=== PATIENT | female | born 1965 | race Caucasian/White ===

== ENCOUNTER 2017-02-22 20:32 | Emergency (ER) | payer MEDICAID ==
[~2017-02-22] VITALS: Ht 154.9 cm; Wt 81.8 kg
[2017-02-22 20:40] VITALS: BP 149/94
--- NOTE | 2017-02-22 21:50 | NUR ---
PT TAKEN TO BED 1
--- NOTE | 2017-02-22 21:55 | NUR ---
PATIENT IS A 51 Y/O FEMALE WHO PRESENTS TO THE ED C/O R ANKLE PAIN. PT STATES, "I FELL DOWN ABOUT THREE DAYS AGO." PT REPORTS 10/10 BURNING PAIN ON THE RIGHT ANKLE THAT DOES NOT RADIATE. PT DENIES CP, SOB, N/V/D. PT AAXO4, RR EVEN/UNLABORED. PT REPOSITIONED FOR COMFORT, BED IN LOWEST POSITION. PARUL HURTADO NOTIFIED. WILL CONTINUE TO MONITOR. Addendum: 02/22/17 at 2226 by [email or web address] PATIENT IS A 51 Y/O FEMALE WHO PRESENTS TO THE ED C/O R ANKLE PAIN. PT STATES, "I FELL DOWN ABOUT THREE DAYS AGO." PT REPORTS 10/10 BURNING PAIN ON THE RIGHT ANKLE THAT DOES NOT RADIATE. CAP REFILL IMMEDIATE, ROM INTACT, AND SENSATION INTACT. NO OBVIOUS SIGNS OF BLEEDING. SWELLING NOTED TO RIGHT ANKLE. PT DENIES CP, SOB, N/V/D. PT AAXO4, RR EVEN/UNLABORED. PT REPOSITIONED FOR COMFORT, BED IN LOWEST POSITION. PARUL HURTADO NOTIFIED. WILL CONTINUE TO MONITOR.
--- NOTE | 2017-02-22 22:06 | NUR ---
Dr. Kearns evaluating patient at bedside.
--- NOTE | 2017-02-22 22:16 | NUR ---
X-Ray at bedside.
[2017-02-22 23:27] VITALS: BP 142/89
--- NOTE | 2017-02-22 23:27 | NUR ---
Patient discharged with v/s stable. Written and verbal after care instructions given and explained. Patient alert, oriented and verbalized understanding of instructions. Ambulatory with steady gait. All questions addressed prior to discharge. ID band removed. Patient advised to follow up with PMD. Rx of NAPROXEN 500MG given. Patient educated on indication of medication including possible reaction and side effects. Opportunity to ask questions provided and answered.
== END 2017-02-22 23:27 | disposition home or self-care (01) ==
LOC: MED 20:32
DX: S93.601A Unspecified sprain of right foot, initial encounter (principal); J45.909 Unspecified asthma, uncomplicated; W01.0XXA Fall on same level from slipping, tripping and stumbling without subsequent striking against object, initial encounter; Y93.89 Activity, other specified; Y92.89 Other specified places as the place of occurrence of the external cause; Y99.8 Other external cause status
CPT/HCPCS: 73630; 81025; 99284; Q0092

== ENCOUNTER 2018-02-14 12:11 | Emergency (ER) | payer MEDICAID ==
[~2018-02-14] VITALS: Ht 154.9 cm; Wt 77.1 kg
[2018-02-14 12:27] VITALS: BP 156/78
[2018-02-14] MEDS ORDERED: KETOROLAC 30 MG/ML VIAL IM ONE (15:35)
[2018-02-14 16:27] VITALS: BP 138/70
== END 2018-02-14 16:28 | disposition home or self-care (01) ==
LOC: MED 12:11
DX: S96.912A Strain of unspecified muscle and tendon at ankle and foot level, left foot, initial encounter (principal); S86.912A Strain of unspecified muscle(s) and tendon(s) at lower leg level, left leg, initial encounter; J45.909 Unspecified asthma, uncomplicated; X58.XXXA Exposure to other specified factors, initial encounter; Y93.89 Activity, other specified; Y92.89 Other specified places as the place of occurrence of the external cause; Y99.8 Other external cause status
CPT/HCPCS: 73562; 96372; 99283; J1885; Q0092